=== PATIENT | female | born 2000 | race Caucasian/White ===

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

== ENCOUNTER 2018-01-13 19:56 | Emergency (ER) | payer SELFPAY ==
[~2018-01-13] VITALS: Ht 165.1 cm; Wt 50.0 kg
[2018-01-13 20:28] LABS: MICROSCOPIC NOT IND
[2018-01-13 20:33] LABS: CULTURE INDICATED? NO
[2018-01-13 20:34] LABS: BASOPHILS # (AUTO) 0.09 x10^3/uL (0-0.3); BASOPHILS % (AUTO) 2 % (0-1); EOSINOPHILS # (AUTO) 0.09 x10^3/uL (0-0.8); EOSINOPHILS % (AUTO) 2 % (1-7); LYMPHOCYTES % (AUTO) 49 % (22-44); MD NO; MEAN CORPUSCULAR HEMOGLOBIN 30.2 pg (27.0-34.8); MEAN CORPUSCULAR HGB CONC 34.1 g/dL (32.4-35.8); MEAN CORPUSCULAR VOLUME 88.7 fL (80-100); MEAN PLATELET VOLUME 8.6 fL (7.4-10.4); MONOCYTES # (AUTO) 0.48 x10^3/uL (0-1.4); MONOCYTES % (AUTO) 8 % (2-9); NEUTROPHILS % (AUTO) 41 % (42-75); PLATELET COUNT 251 x10^3/uL (130-400); RED BLOOD COUNT 4.82 x10^6/uL (3.82-5.3)
[2018-01-13 20:40] LABS: ALANINE AMINOTRANSFERASE 20 U/L (12-78); ALBUMIN 4.3 g/dL (3.4-5.0); ANION GAP 5 mmol/L (5-15); CALCIUM 8.9 mg/dL (8.5-10.1); CHLORIDE 107 mmol/L (98-107); CREATININE 0.84 mg/dL (0.55-1.02)
[2018-01-13 20:44] LABS: ALKALINE PHOSPHATASE 59 U/L (45-117); BILIRUBIN,TOTAL 0.4 mg/dL (0.2-1.0); TOTAL PROTEIN 7.7 g/dL (6.4-8.2)
[2018-01-13] MEDS ORDERED: CEFTRIAXONE 250 MG IM ONE (22:00)
[2018-01-13] MEDS ORDERED: AZITHROMYCIN 500 MG TABLET PO ONE (22:00)
[2018-01-13] MEDS ORDERED: CEFTRIAXONE 250 MG ONE (22:01)
[2018-01-13] MEDS ORDERED: AZITHROMYCIN 250 MG TABLET ONE (22:02)
[2018-01-13 22:07] VITALS: BP 118/65
[2018-01-13 22:27] LABS: CLUE CELLS NONE SEEN (NONE SEEN); WET PREP WBCS FEW (FEW)
== END 2018-01-13 23:06 | disposition home or self-care (01) ==
LOC: ED 21:25
DX: R10.32 Left lower quadrant pain (principal)
CPT/HCPCS: 36415; 76830; 80053; 81003; 84703; 85025; 87210; 87491; 87591; 87808; 96372; 99285; J0696

== ENCOUNTER 2020-11-07 21:06 | Emergency (ER) | payer SELFPAY ==
[~2020-11-07] VITALS: Ht 165.1 cm; Wt 60.8 kg
[2020-11-07 21:19] VITALS: BP 99/57
[2020-11-07 22:39] LABS: BASOPHILS % (AUTO) 0 % (0-1); EOSINOPHILS % (AUTO) 0 % (1-7); LYMPHOCYTES % (AUTO) 12 % (22-44); MEAN CORPUSCULAR HGB CONC 33.8 g/dL (32.4-35.8); MEAN PLATELET VOLUME 8.4 fL (7.4-10.4); MONOCYTES % (AUTO) 5 % (2-9); NEUTROPHILS % (AUTO) 83 % (42-75); PLATELET COUNT 180 x10^3/uL (130-400); RED BLOOD COUNT 3.96 x10^6/uL (3.82-5.3); RED CELL DISTRIBUTION WIDTH 15.2 % (9.6-15.2)
[2020-11-07 22:50] LABS: ALBUMIN 3.3 g/dL (3.4-5.0); ANION GAP 8 mmol/L (5-15); CALCIUM 8.5 mg/dL (8.5-10.1); CHLORIDE 104 mmol/L (98-107); CREATININE 0.61 mg/dL (0.55-1.02)
== END 2020-11-07 23:27 | disposition home or self-care (01) ==
LOC: ED 21:57
DX: N61.1 Abscess of the breast and nipple (principal)
CPT/HCPCS: 36415; 76642; 80048; 82040; 85025; 99284